=== PATIENT | male | born 1950 | race Caucasian/White ===

== ENCOUNTER 2020-10-16 13:43 | Emergency (ER) | payer MEDICARE ==
[~2020-10-16] VITALS: Ht 177.8 cm; Wt 108.9 kg
[2020-10-16] MEDS ORDERED: AMLO2.5T4 PO (14:00)
[2020-10-16] MEDS ORDERED: LOSA100T31 PO (14:00)
[2020-10-16] MEDS ORDERED: IV NORMAL SALINE 1000 ML BAG IV ONE (14:00)
[2020-10-16] MEDS ORDERED: ATOR20TA PO (14:00)
[2020-10-16] MEDS ORDERED: METF-440 PO (14:00)
[2020-10-16 14:20] LABS: BASOPHILS % (AUTO) 0.2 % (0.0-2.0); HEMATOCRIT 42.1 % (36.7-47.1); HEMOGLOBIN 14.1 g/dL (12.5-16.3); LYMPHOCYTES # (AUTO) 0.5 K/uL (20.0-40.0); LYMPHOCYTES % (AUTO) 2.5 % (20.5-51.5); MEAN CORPUSCULAR HEMOGLOBIN 29.6 uug (23.8-33.4); MEAN CORPUSCULAR HGB CONC 33 g/dL (32.5-36.3); MEAN CORPUSCULAR VOLUME 88.5 fL (73.0-96.2); MONOCYTES # (AUTO) 1.8 K/uL (2.0-10.0); MONOCYTES % (AUTO) 8.6 % (0.0-11.0); NEUTROPHILS # (AUTO) 18.2 K/uL (1.8-8.9); NEUTROPHILS % (AUTO) 88.7 % (38.5-71.5); PLATELET COUNT (AUTO) 249 K/uL (152-348); RED BLOOD CELL COUNT(AUTO) 4.75 MIL/uL (4.06-5.63); WHITE BLOOD COUNT (AUTO) 20.5 K/uL (3.6-10.2)
[2020-10-16 14:28] LABS: CREATININE 1.2 mg/dL (0.6-1.3); POTASSIUM 4.1 mmol/L (3.5-5.1)
[2020-10-16 14:33] LABS: BILIRUBIN,DIRECT 0.2 mg/dL (0.0-0.2); BILIRUBIN,TOTAL 0.7 mg/dL (0.2-1.0); TOTAL PROTEIN, SERUM 7.2 g/dL (6.4-8.2)
[2020-10-16 15:00] LABS: *BILIRUBIN,URIN 1+ (NEGATIVE); *BLOOD, URINE 1+ (NEGATIVE); *CLARITY,URINE SLIGHTLY CLOUDY (CLEAR); *COLOR,URINE YELLOW (YELLOW); *KETONES,URINE 1+ (NEGATIVE); *UROBILINOGEN,URINE 0.2 E.U./dl (NORMAL); LEUKOCYTE ESTERASE ,URINE 1+ (NEGATIVE); NITRITE, URINE NEGATIVE (NEGATIVE); PH,URINE 5.5 (5.0-8.0); UGLUCOSE TRACE (NEGATIVE)
[2020-10-16 15:14] LABS: SQUAMOUS EPITHELIAL CELL,UR FEW /HPF (NONE SEEN)
[2020-10-16 15:15] LABS: URINE AMORPHOUS URATE MODERATE /HPF
[2020-10-16] MEDS ORDERED: CEFTRIAXONE 2 G in IV DEXTROSE 5% 100 ML IV ONE (15:15)
[2020-10-16] MEDS ORDERED: CEPH500C2 PO (15:19)
[2020-10-16] MEDS ORDERED: CEFTRIAXONE /D5W 50ML IVPB **ER PYXIS IV ONE (15:31)
[2020-10-16] MEDS ORDERED: CEFTRIAXONE 1 G VIAL ONE (15:32)
[2020-10-16 16:51] VITALS: BP 132/88
== END 2020-10-16 16:52 | disposition home or self-care (01) ==
LOC: ER 13:45
DX: N39.0 Urinary tract infection, site not specified (principal); R53.1 Weakness; Z20.822 Contact with and (suspected) exposure to COVID-19; I10 Essential (primary) hypertension; E11.9 Type 2 diabetes mellitus without complications; Z79.84 Long term (current) use of oral hypoglycemic drugs; E78.5 Hyperlipidemia, unspecified; Z79.899 Other long term (current) drug therapy
CPT/HCPCS: 36415; 71045; 80048; 80076; 81001; 83605; 83690; 84484; 85025; 85730; 87077; 87086; 87186; 87426; 93005; 96361; 96365; 99285; J0696; U0003; 70030-TC; A4663